=== PATIENT | male | born 1955 | race African-American/Black ===

== ENCOUNTER 2016-09-21 15:21 | Emergency (ER) | payer SELFPAY ==
[~2016-09-21] VITALS: Ht 180.3 cm; Wt 80.0 kg
[2016-09-21 15:23] VITALS: BP 158/87; PULSE 64; RESP 15; TEMP 97.8; O2SAT 98
[2016-09-21] MEDS ORDERED: GLAUCOMA DROPS EACH EYE (15:59)
[2016-09-21] MEDS ORDERED: diphenhydrAMINE HCL 50 MG/ML VIAL IV PUSH ONE (17:15)
[2016-09-21] MEDS ORDERED: FAMOTIDINE 20 MG/2 ML VIAL IV PUSH SCH (17:15)
[2016-09-21] MEDS ORDERED: methylPREDNISolone SOD SUCC 125 MG/2 ML VIAL IV PUSH ONE (17:15)
[2016-09-21] MEDS ORDERED: PRED20 PO (18:40)
[2016-09-21] MEDS ORDERED: RANI150T PO (18:40)
[2016-09-21] MEDS ORDERED: CEPH-460 PO (18:40)
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
== END 2016-09-21 20:08 | disposition home or self-care (01) ==
LOC: NEPD 15:21
DX: L03.211 Cellulitis of face (principal); T78.40XA Allergy, unspecified, initial encounter
CPT/HCPCS: 86403; 87070; 96374; 96375; 99283; J1200; J2930; 87205